=== PATIENT | female | born 1955 | race Caucasian/White ===

== ENCOUNTER 2016-10-14 12:04 | Emergency (ER) | payer OTHER ==
[2016-10-14 12:34] VITALS: BP 144/84; TEMP 97.6; O2SAT 96
--- NOTE | 2016-10-14 12:54 | ED.PDOC ---
History of Present Illness - General Chief Complaint: Abdominal Pain Stated Complaint: LLQ abdominal pain Time Seen by Provider: 10/14/16 12:28 Source: patient Exam Limitations: no limitations - History of Present Illness Initial Comments: She stated that she started having sharp shooting pain on her left lower quadrant for the last several weeks intermittent but had gotten worse the last 2 days with muscle cramps and loose stools after eating sometimes radiating to her back and also feeling of nausea.Denies hematuria,blood in stool, constipation no weight loss ,no foreign travel. Timing/Duration: other - several weeks ago Severity: moderate Improving Factors: nothing Worsening Factors: eating Allergies/Adverse Reactions: Allergies NO KNOWN ALLERGY Allergy (Verified 10/14/16 12:34) Home Medications: Ambulatory Orders Acetaminophen W/ Codeine [Tylenol w/Codeine 300-30 mg] 1 tab PO Q6HRS PRN #10 tab 10/14/16 Bupropion HCl [Wellbutrin Xl] 300 mg PO DAILY 10/14/16 Hormone Patch 10/14/16 Levofloxacin [Levaquin] 500 mg PO AC #7 tab 10/14/16 Losartan Potassium DAILY 10/14/16 Promethazine HCl 50 mg PO TID PRN #14 tab 10/14/16 Zolpidem Tartrate [Ambien Cr] 12.5 mg PO BEDTIME 10/14/16 Review of Systems - Review of Systems Constitutional: States: no symptoms reported EENTM: States: no symptoms reported Respiratory: States: no symptoms reported Cardiology: States: no symptoms reported Gastrointestinal/Abdominal: States: see HPI Genitourinary: States: no symptoms reported Musculoskeletal: States: no symptoms reported Skin: States: no symptoms reported Neurological: States: no symptoms reported Endocrine: States: no symptoms reported Hematologic/Lymphatic: States: no symptoms reported Past Medical History (General) - Patient Medical History Hx Hypertension: Yes Hx Diabetes: No Hx Other PMH: - depression Surgical History: other - colonoscopy x 2 - Vaccination History Hx Tetanus, Diphtheria Vaccination: Yes Hx Influenza Vaccination: Yes Hx Pneumococcal Vaccination: Yes - Social History Hx Tobacco Use: No - Activities of Daily Living Patient Lives Alone: No Grooming Ability: Independent Eating (Feeding) Ability: Independent Toileting Ability: Independent Family Medical History - Family History Mother Family History: Unknown Living Status: Unknown Hx Family Cancer: Yes - prostate -dad Physical Exam - Physical Exam General Appearance: Alert, Comfortable, No apparent distress Eye Exam: bilateral normal Ears, Nose, Throat: hearing grossly normal, normal ENT inspection, normal pharynx Neck: non-tender, full range of motion, supple, normal inspection Respiratory: chest non-tender, lungs clear, normal breath sounds, no respiratory distress Cardiovascular/Chest: normal peripheral pulses, regular rate, rhythm, no edema, no gallop, no JVD, no murmur Peripheral Pulses: radial,right: 2+, radial,left: 2+ Gastrointestinal/Abdominal: normal bowel sounds, soft, tenderness - left lower quadrant no peritoneal signs Back Exam: normal inspection, no CVA tenderness, no vertebral tenderness Extremity: normal range of motion, non-tender, normal inspection Neurologic: no motor/sensory deficits, alert, normal mood/affect, oriented x 3 Skin Exam: normal color, warm/dry Lymphatic: no adenopathy Progress - Results/Orders Results/Orders: Laboratory Results WBC 5.2 K/mm3 (4.8-10.8) 10/14/16 13:00 RBC 4.36 M/mm3 (4.20-5.40) 10/14/16 13:00 Hgb 13.5 gm/dL (12.0-16.0) 10/14/16 13:00 Hct 40.2 % (36.0-47.0) 10/14/16 13:00 MCV 92.2 fl (81.0-99.0) 10/14/16 13:00 MCH 31.1 pg (27.0-31.0) H 10/14/16 13:00 MCHC 33.7 g/dL (33.0-37.0) 10/14/16 13:00 RDW 13.1 % (11.5-14.5) 10/14/16 13:00 Plt Count 363 K/mm3 (130-400) 10/14/16 13:00 MPV 7.4 fl (7.40-10.4) 10/14/16 13:00 Absolute Neuts (auto) 2.20 K/uL (1.8-6.8) 10/14/16 13:00 Absolute Lymphs (auto) 2.20 K/uL (1.0-3.4) 10/14/16 13:00 Absolute Monos (auto) 0.50 K/uL (0.2-0.8) 10/14/16 13:00 Absolute Eos (auto) 0.20 K/uL (0.0-0.4) 10/14/16 13:00 Absolute Basos (auto) 0.10 K/uL (0.0-0.1) 10/14/16 13:00 Neutrophils % 43.0 % (42.0-78.0) 10/14/16 13:00 Lymphocytes % 42.5 % (20.0-50.0) 10/14/16 13:00 Monocytes % 9.4 % (2.0-9.0) H 10/14/16 13:00 Eosinophils % 4.1 % (1.0-5.0) 10/14/16 13:00 Basophils % 1.0 % (0.0-2.0) 10/14/16 13:00 Sodium 139 mmol/L (135-145) 10/14/16 13:00 Potassium 3.9 mmol/L (3.6-5.0) 10/14/16 13:00 Chloride 104 mmol/L (101-111) 10/14/16 13:00 Carbon Dioxide 26 mmol/L (21-31) 10/14/16 13:00 Anion Gap 12.9 (12-18) 10/14/16 13:00 BUN 16 mg/dL (7-18) 10/14/16 13:00 Creatinine 0.69 mg/dL (0.6-1.3) 10/14/16 13:00 BUN/Creatinine Ratio 23.2 (10-20) H 10/14/16 13:00 Random Glucose 101 mg/dL (70-105) 10/14/16 13:00 Serum Osmolality 278.9 mOsm/L (275-295) 10/14/16 13:00 Calcium 8.9 mg/dL (8.4-10.2) 10/14/16 13:00 Total Bilirubin 0.5 mg/dL (0.2-1.0) 10/14/16 13:00 AST 24 IU/L (10-42) 10/14/16 13:00 ALT 27 IU/L (10-60) 10/14/16 13:00 Alkaline Phosphatase 87 IU/L (42-121) 10/14/16 13:00 Serum Total Protein 8.5 gm/dL (6.4-8.2) H 10/14/16 13:00 Albumin 4.1 g/dl (3.2-5.5) 10/14/16 13:00 Globulin 4.4 gm/dL (2.3-3.5) H 10/14/16 13:00 Albumin/Globulin Ratio 0.9 (1.1-1.9) L 10/14/16 13:00 Lipase 23 U/L (22-51) 10/14/16 13:00 Urine Color Yellow (Yellow) 10/14/16 13:08 Urine Appearance Clear (Clear) 10/14/16 13:08 Urine pH 5.5 (4.5-7.8) 10/14/16 13:08 Ur Specific Clifford 1.025 (1.005-1.030) 10/14/16 13:08 Urine Protein Negative mg/dL 10/14/16 13:08 Urine Glucose (UA) Negative mg/dL (Negative) 10/14/16 13:08 Urine Ketones Negative mg/dL (NEGATIVE) 10/14/16 13:08 Urine Blood Negative (Negative) 10/14/16 13:08 Urine Nitrite Negative 10/14/16 13:08 Urine Bilirubin Negative (NEGATIVE) 10/14/16 13:08 Urine Urobilinogen 0.2 mg/dL (0.2-1.0) 10/14/16 13:08 Ur Leukocyte Esterase Negative (Negative) 10/14/16 13:08 Urine RBC 0 /hpf 10/14/16 13:08 Urine WBC 0 /hpf 10/14/16 13:08 Ur Epithelial Cells 1-3 /hpf 10/14/16 13:08 Urine Bacteria 0 10/14/16 13:08 D/W her primary md in [place] since her patients lab are all WNL she follow her up at her clinic where she will do additional work up.Patient presently asymptomatic. Departure - Departure Clinical Impression: Left lower quadrant pain Time of Disposition: 14:56 Disposition: Discharge to Home or Self Care Condition: Good Departure Forms: ED Discharge - Pt. Copy, Patient Portal Self Enrollment Instructions: DI for Abdominal Pain-Adult Diet: other - low fiber diet with small frequent meals Prescriptions: Acetaminophen W/ Codeine [Tylenol w/Codeine 300-30 mg] 1 tab PO Q6HRS PRN #10 tab PRN Reason: Pain Levofloxacin [Levaquin] 500 mg PO AC #7 tab Promethazine HCl 50 mg PO TID PRN #14 tab PRN Reason: Nausea Home Medications: Ambulatory Orders Acetaminophen W/ Codeine [Tylenol w/Codeine 300-30 mg] 1 tab PO Q6HRS PRN #10 tab 10/14/16 Bupropion HCl [Wellbutrin Xl] 300 mg PO DAILY 10/14/16 Hormone Patch 10/14/16 Levofloxacin [Levaquin] 500 mg PO AC #7 tab 10/14/16 Losartan Potassium DAILY 10/14/16 Promethazine HCl 50 mg PO TID PRN #14 tab 10/14/16 Zolpidem Tartrate [Ambien Cr] 12.5 mg PO BEDTIME 10/14/16 Additional Instructions: FOLLOW UP WITH PRIMARY MD 2016 Patient to call for appointment RETURN TO EMERGENCY ROOM NEEDED
[2016-10-14] MEDS ORDERED: ONDANSETRON INJ 4 MG/2 ML VIAL IV ONE (13:00)
[2016-10-14] MEDS ORDERED: HYDROcodone 10MG/APAP 325MG 1 EA TAB PO ONE (14:33)
== END 2016-10-14 15:25 | disposition home or self-care (01) ==
LOC: ER 12:04
DX: R10.32 Left lower quadrant pain (principal); I10 Essential (primary) hypertension; F32.9 Major depressive disorder, single episode, unspecified; Z79.899 Other long term (current) drug therapy; R11.0 Nausea
CPT/HCPCS: 80053; 81001; 83690; 85025; J2405